=== PATIENT | female | born 1975 | race Asian ===

== ENCOUNTER 2020-02-13 12:25 | Outpatient (CLI) | payer OTHER ==
--- NOTE | 2020-02-14 11:45 | Mammography Report ---
BILATERAL DIGITAL DIAGNOSTIC MAMMOGRAM 3D/2D: 02/13/2020 CLINICAL: Palpable left breast lump. Comparison is made to exam dated: 04/19/2016 mammogram - [facility]. The tissue of both freddy asts is heterogeneously dense. This may lower the sensitivity of mammography. There is a focal asymmetry in the right breast at 11 o'clock posterior depth. This is seen in additi onal views. No other significant masses, calcifications, or other findings are seen in either breast. IMPRESSION: INCOMPLETE: NEEDS ADDITIONAL IMAGING EVALUATION The focal asymmetry in the right breast is indeterminate. There is no mammographic abnormality seen in the left breast to correspond with the palpable abnormal ity. A targeted ultrasound of the bilateral breasts is recommended and will be performed immediately follo wing this exam. This exam was interpreted at Station ID: [id number]. NOTE: For mammograms, a report in lay terms will be sent to the patient. Approximately 15% of breast malignancies will not be visualized mammographically. In the management of a palpable breast mass, a negative mammogram must not discourage biopsy of a clinically suspicious lesion. Electronically Signed By: Ginger Coronado M.D. lk/:02/13/2020 13:45:21 ACR BI-RADS Category 0: Incomplete 3340F PARENCHYMAL PATTERN: (D) - The breast(s) demonstrate(s) heterogeneously dense fibroglandular elen henry. BI-RADS CATEGORY: (0) - 0 Ultrasound [id number] Immediate follow-up LATERALITY: (B)
--- NOTE | 2020-02-14 11:45 | Ultrasound Report ---
LIMITED ULTRASOUND OF LEFT BREAST: 02/13/2020 CLINICAL: Palpable left breast lump. Comparison is made to exams dated: 02/13/2020 mammogram - [facility] and 04/19/2016 mammogram - [facility]. Ultrasound of the left breast 2 o'clock region was performed on the area of interest. IMPRESSION: INCOMPLETE: NEEDS ADDITIONAL IMAGING EVALUATION There is no mammographic or sonographic abnormality seen in the left breast to correspond with the pa lpable abnormality in the upper outer quadrant, however, clinical followup is recommended. A right breast ultrasound is recommended for the right upper outer quadrant focal asymmetry seen on t he comparison mammogram from today and will be scheduled as soon as possible. This exam was interpreted at Station ID: [id number]. Electronically Signed By: Ginger Coronado M.D. lk/:02/13/2020 14:16:32 Ultrasound BI-RADS: 0 Indeterminate BI-RADS CATEGORY: (0) - 0 RECOMMENDATION: (ANNUAL) - Recommend routine annual screening mammography. [id number] 1 year screening LATERALITY: (B)
== END 2020-02-13 12:26 | disposition home or self-care (01) ==
LOC: DI 12:25
PROVIDERS: ATTEND Family Medicine
DX: N64.89 Other specified disorders of breast (principal)